=== PATIENT | male | born 1980 | race Hispanic/Latino ===

== ENCOUNTER 2019-09-28 07:57 | Emergency (ER) | payer OTHER ==
--- NOTE | 2019-09-28 09:41 | EDPHYS ---
Physician Documentation [facility] Name: Nakul May Age: 39 yrs Sex: Male : 1980 Arrival Date: 09/28/2019 Time: 07:58 Bed 12 Private MD: ED Physician Shade Santana HPI: 09/27 08:19 This 39 yrs old Male presents to ER via Unassigned with complaints of R/O cp COVID. 08:20 The patient or guardian reports cough, that is intermittent, with no sputum. Onset: The cp symptoms/episode began/occurred today. Associated signs and symptoms: Pertinent positives: sore throat, Pertinent negatives: chest pain, diarrhea, fever, vomiting. 08:20 Severity of symptoms: in the emergency department the symptoms are unchanged despite cp home interventions. ROS: 08:21 Constitutional: Negative for body aches, chills, fever, poor PO intake. cp 08:21 Eyes: Negative for injury, pain, redness, and discharge. cp 08:21 ENT: Positive for sore throat, Negative for ear pain, difficulty swallowing, difficulty handling secretions. 08:21 Cardiovascular: Negative for chest pain, palpitations. 08:21 Respiratory: Positive for cough, with no reported sputum, Negative for shortness of breath, wheezing. 08:21 Abdomen/GI: Negative for abdominal pain, nausea, vomiting, and diarrhea. 08:21 : Negative for urinary symptoms, testicular pain 08:21 Skin: Negative for rash. 08:21 Neuro: Negative for altered mental status, headache, weakness. 08:21 All other systems are negative. Exam: 08:23 Head/Face: Normocephalic, atraumatic. cp 08:23 Constitutional: The patient appears in no acute distress, alert, awake, non-toxic, well developed, well nourished. 08:23 Eyes: Periorbital structures: appear normal, Conjunctiva: normal, no exudate, no injection, Lids and lashes: appear normal, bilaterally. 08:23 ENT: External ear(s): are unremarkable, Ear canal(s): are normal, clear, TM's: dullness, bilaterally, Nose: is normal, Mouth: Lips: moist, Oral mucosa: pink and intact, moist, Posterior pharynx: is normal, airway is patent, no erythema, no exudate. 08:23 Neck: Lymph nodes: no appreciated lymphadenopathy. 08:23 Chest/axilla: Inspection: normal, Palpation: is normal, no crepitus, no tenderness. 08:25 Cardiovascular: Rate: normal, Rhythm: regular. cp 08:25 Respiratory: the patient does not display signs of respiratory distress, Respirations: cp normal, no use of accessory muscles, no retractions, labored breathing, is not present, Breath sounds: are clear throughout, no decreased breath sounds, no stridor, no wheezing. 08:25 Abdomen/GI: Exam negative for discomfort, distension, guarding, Inspection: abdomen appears normal. 08:25 Skin: no rash present. Vital Signs: 08:30 BP 125 / 69; Pulse 66; Resp 18; Temp 98.6; Pulse Ox 99% on R/A; Weight 68.04 kg; Height dm5 5 ft. 5 in. (165.10 cm); Pain 0/10; 08:30 Body Mass Index 24.96 (68.04 kg, 165.10 cm) dm5 MDM: 08:19 Patient medically screened. cp 08:45 Differential diagnosis: bronchitis, flu, URI, COVID-19, strep throat. cp 09:40 Data reviewed: vital signs, nurses notes, lab test result(s), and as a result, I will cp discharge patient. 09:40 Counseling: I had a detailed discussion with the patient and/or guardian regarding: the cp historical points, exam findings, and any diagnostic results supporting the discharge/admit diagnosis, lab results, to return to the emergency department if symptoms worsen or persist or if there are any questions or concerns that arise at home. ED course: VSS. Patient instructed to self quarantine until results of COVID-19 testing. 09/27 08:32 Order name: COVID-19 cp 09/27 08:32 Order name: Flu; Complete Time: 09:38 cp 09/27 08:32 Order name: Strep; Complete Time: 09:38 cp 09/27 09:38 Interpretation: Reviewed. cp 09/27 08:32 Order name: Document PUI#; Complete Time: 09:38 cp 09/27 08:32 Order name: Droplet/Contact Precautions; Complete Time: 09:38 cp 09/27 08:32 Order name: Labs collected and sent; Complete Time: 09:38 cp 09/27 08:32 Order name: [facility] Dept [phone]/ ; Complete Time: 09:38 cp 09/27 08:32 Order name: O2 Per Protocol; Complete Time: 09:38 cp Administered Medications: No medications were administered Disposition: 15:53 Co-signature as Attending Physician, Sahde Santana MD I agree with the assessment and kdr plan of care. Disposition: 09/28/19 09:41 Discharged to Home. Impression: Streptococcal pharyngitis. - Condition is Stable. - Discharge Instructions: Strep Throat. - Prescriptions for Amoxicillin 875 mg Oral Tablet - take 1 tablet by ORAL route every 12 hours for 10 days; 20 tablet. - Medication Reconciliation Form, Thank You Letter, Antibiotic Education, Prescription Opioid Use form. - Follow up: Private Physician; When: 2 - 3 days; Reason: Worsening of condition. - Problem is new. - Symptoms are unchanged. Signatures: Dispatcher [employer] Saima Camacho RN RN dm5 Shade Santana MD MD kdr Octaviano Crowley PA PA cp Corrections: (The following items were deleted from the chart) 09:53 09:41 09/28/2019 09:41 Discharged to Home. Impression: Streptococcal pharyngitis. dm5 Condition is Stable. Forms are Medication Reconciliation Form, Thank You Letter, Antibiotic Education, Prescription Opioid Use. Follow up: Private Physician; When: 2 - 3 days; Reason: Worsening of condition. Problem is new. Symptoms are unchanged. cp
--- NOTE | 2019-09-28 09:54 | ER ---
Nurse's Notes [facility] Name: Nakul May Age: 39 yrs Sex: Male : 1980 Arrival Date: 09/28/2019 Time: 07:58 Bed 12 Private MD: Diagnosis: Streptococcal pharyngitis Presentation: 09/27 08:30 Chief complaint: Patient states: sore throat started today. cough. Coronavirus screen: dm5 Patient reports a cough. Patient denies shortness of breath or difficulty breathing. Patient reports a measured and/or subjective temperature greater than 100.4F. Patient denies travel on a cruise ship or to a country the [facility] currently lists as an affected area. Patient denies contact with known and/or suspected case of COVID-19. Ebola Screen: Patient negative for fever greater than or equal to 101.5 degrees Fahrenheit, and additional compatible Ebola Virus Disease symptoms Patient denies exposure to infectious person. Patient denies travel to an Ebola-affected area in the 21 days before illness onset. No symptoms or risks identified at this time. Initial Sepsis Screen: Does the patient meet any 2 criteria? No. Patient's initial sepsis screen is negative. Does the patient have a suspected source of infection? No. Patient's initial sepsis screen is negative. Risk Assessment: Do you want to hurt yourself or someone else? Patient reports no desire to harm self or others. Onset of symptoms was September 28, 2019. 08:30 Method Of Arrival: Ambulatory 5 08:30 Acuity: JIMENA 4 dm5 Triage Assessment: 08:30 General: Appears in no apparent distress. Behavior is calm, cooperative. Pain: Denies 5 pain. Vital Signs: 08:30 BP 125 / 69; Pulse 66; Resp 18; Temp 98.6; Pulse Ox 99% on R/A; Weight 68.04 kg; Height dm5 5 ft. 5 in. (165.10 cm); Pain 0/10; 08:30 Body Mass Index 24.96 (68.04 kg, 165.10 cm) 5 ED Course: 07:58 Patient arrived in ED. ag5 08:07 Octaviano Crowley PA is PHCP. cp 08:07 Shade Santana MD is Attending Physician. cp 08:30 Arm band placed on. dm5 09:37 Markwardt, Saima, RN is Primary Nurse. dm5 09:52 Triage completed. dm5 Administered Medications: No medications were administered Outcome: 09:41 Discharge ordered by . josé miguel 09:53 Patient left the ED. dm5 Addendum: 09/30/2019 12:01 Addendum: Other Attempted to contact pt regarding negative COVI-19 swab results. d m5 Received message stating that "the subsriber you have dialed is not in service". Signatures: Saima Cardoza, RN RN dm5 Octaviano Crowley PA PA cp [place], [facility]
[2019-09-28 09:58] VITALS: BP 125/69; TEMP 98.6; O2SAT 99
== END 2019-09-28 09:53 | disposition home or self-care (01) ==
LOC: ER 07:57
DX: J02.0 Streptococcal pharyngitis (principal); Z20.828 Contact with and (suspected) exposure to other viral communicable diseases
CPT/HCPCS: 87081; 87804 ×2; 99281; U0001